=== PATIENT | female | born 1995 | race Caucasian/White ===

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

== ENCOUNTER 2017-06-04 15:03 | Emergency (ER) | payer MEDICAID, OTHER ==
[2017-06-04 15:08] VITALS: BP 129/86; PULSE 90; RESP 18; TEMP 97.2; O2SAT 100
--- NOTE | 2017-06-04 15:32 | ED PDOC ---
HPI: Female Pain Time Seen by Provider: 06/04/17 15:09 Chief Complaint (Nursing): Female Genitourinary History Per: Patient Onset/Duration Of Symptoms: Days (1) Current Symptoms Are (Timing): Still Present Severity: Mild Pain Scale Rating Of: 2 Quality Of Discomfort: Cramping Additional Complaint(s): Vaginal bleeding assoc with lower abd cramping since this AM. Approx 5 weeks . Abnormal Vaginal Bleeding: Yes : 1 Para: 0 Past Medical History Vital Signs: Last Vital Signs Temp 97.2 F L 06/04/17 15:05 Pulse 90 06/04/17 15:05 Resp 18 06/04/17 15:05 BP 129/86 06/04/17 15:05 Pulse Ox 100 06/04/17 15:05 - Medical History PMH: Asthma - Family History Family History: States: Unknown Family Hx - Home Medications Home Medications: Ambulatory Orders Medication Instructions Recorded Fluticasone Propionate [Flonase] 1 spr IN DAILY #1 bottle 05/16/15 Loratadine/Pseudoephedrine S 1 t12 PO BID #20 t12 05/16/15 [Claritin-D 12Hr 5 mg-120 mg] - Allergies Allergies/Adverse Reactions: Allergies Allergy/AdvReac Type Severity Reaction Status Date / Time seafood Allergy SWELLING Uncoded 06/04/17 15:05 Review of Systems Gastrointestinal: Positive for: Abdominal Pain Genitourinary Female: Positive for: Vaginal Bleeding Musculoskeletal: Negative for: Back Pain Physical Exam - Physical Exam Appears: Positive for: Non-toxic, No Acute Distress Skin: Positive for: Normal Color, Warm, DRY Gastrointestinal/Abdominal: Positive for: Bowel Sounds, Soft. Negative for: Tenderness Pelvic Exam: Positive for: External Exam Normal, No Masses, Blood (Blood in vault moderate.), Other (Cervix closed.). Negative for: Tender Adnexa, Tender Uterus Extremity: Positive for: Normal ROM Neurologic/Psych: Positive for: Alert, Oriented - Laboratory Results Result Diagrams: 06/04/17 15:44 06/04/17 15:44 - ECG O2 Sat by Pulse Oximetry: 100 Disposition - Clinical Impression Clinical Impression: Threatened miscarriage - Patient ED Disposition Is Patient to be Admitted: No Counseled Patient/Family Regarding: Studies Performed, Diagnosis, Need For Followup, Rx Given - Disposition [facility]] Disposition: Routine/Home Disposition Time: 16:39 Condition: FAIR Additional Instructions: Repeat Beta HCG 48 hrs Instructions: Threatened Miscarriage (ED) Forms: [employer] (Burundian)
[2017-06-04 15:58] LABS: ALBUMIN 4.8 g/dL (3.5-5.0); ALT/SGPT 34 U/L (9-52); AST/SGOT 26 U/L (14-36); BLOOD UREA NITROGEN 10 mg/dl (7-17); CALCIUM 9.7 mg/dL (8.4-10.2); GFR AFRICAN-AMERICAN > 60; GFR NON-AFRICAN AMERICAN > 60
[2017-06-04 15:59] LABS: BASO % 0.3 % (0.0-2.0); EOS # 0.1 K/uL (0.0-0.7); EOS % 0.7 % (0.0-4.0); HEMOGLOBIN 13.7 g/dL (12.0-16.0); LYMPH % 25.4 % (20.0-40.0); MEAN CELL VOLUME 84.9 fl (81.0-99.0); MEAN CORPUSCULAR HEMOGLOBIN 28.2 pg (27.0-31.0); MEAN CORPUSCULAR HGB CONC 33.3 g/dL (33.0-37.0); MEAN PLATELET VOLUME 8.4 fl (7.2-11.7); MONO # 0.5 K/uL (0.0-0.8); MONO % 4.1 % (0.0-10.0); NEUT # 8.1 K/uL (1.8-7.0); NEUT % 69.5 % (50.0-75.0); NRBC % 0.1 % (0.0-0.0); RBC 4.84 Mil/uL (3.80-5.20); RED CELL DISTRIBUTION WIDTH 12.7 % (11.5-14.5); WHITE BLOOD COUNT 11.7 K/uL (4.8-10.8)
[2017-06-04 16:21] LABS: ALB/GLOB RATIO 1.2 (1.0-2.1)
--- NOTE | 2017-06-04 16:38 | US ---
PROCEDURE: OB Pelvic Ultrasound HISTORY: r/o ectopic COMPARISON: None available. FINDINGS: UTERUS: No clear intrauterine gestation identified. 2-3 mm rounded anechoic space within endometrial echo complex is noted common nonspecific. Possible very early intrauterine gestation. Correlate with serial beta HCG and transvaginal ultrasound. Uterus measures 7.6 x 4.0 x 5.1 cm. No uterine mass. CERVIX: Long and closed. No cervical abnormality seen. RIGHT OVARY: Measures 3.0 x 1.4 x 2.1 cm. No mass. Normal flow. LEFT OVARY: Measures 2.7 x 1.4 x 2.2 cm. No mass. Normal flow. FREE FLUID: None. OTHER FINDINGS: None. IMPRESSION: No definite intrauterine gestation. Tiny anechoic space within endometrial echo complex could represent very early intrauterine gestation. Followup with serial beta HCG and transvaginal ultrasound. Cannot exclude ectopic on the basis of this examination, in the absence of clear demonstration of intrauterine gestation.
== END 2017-06-04 17:14 | disposition home or self-care (01) ==
LOC: H.ER 15:03
DX: O20.0 Threatened abortion (principal); Z3A.01 Less than 8 weeks gestation of pregnancy; J45.909 Unspecified asthma, uncomplicated; O99.511 Diseases of the respiratory system complicating pregnancy, first trimester

== ENCOUNTER 2017-06-06 13:14 | Emergency (ER) | payer MEDICAID ==
[2017-06-06 13:31] VITALS: BP 134/63; PULSE 88; RESP 16; TEMP 98.1; O2SAT 100
--- NOTE | 2017-06-06 13:41 | ED PDOC ---
HPI: Female Pain Time Seen by Provider: 06/06/17 13:21 Chief Complaint (Nursing): Female Genitourinary Chief Complaint (Provider): Vaginal bleeding History Per: Patient Additional Complaint(s): 21 yo female, no PMH, presents to ED with complaints of continued vaginal bleeding since 06/04. Pt currently 5 weeks . Pt seen and evlauated in the ED on 06/04 and US did not show IUP, Beta 351 at that time. Past Medical History Reviewed: Nursing Documentation, Vital Signs Vital Signs: Last Vital Signs Temp 98.1 F 06/06/17 13:28 Pulse 88 06/06/17 13:28 Resp 16 06/06/17 13:28 BP 134/63 06/06/17 13:28 Pulse Ox 100 06/06/17 13:28 - Medical History PMH: Asthma - Surgical History Surgical History: No Surg Hx - Family History Family History: States: Unknown Family Hx - Living Arrangements Living Arrangements: With Family - Social History Current smoker - smoking cessation education provided: No Alcohol: None Drugs: Denies - Home Medications Home Medications: Ambulatory Orders Medication Instructions Recorded Fluticasone Propionate [Flonase] 1 spr IN DAILY #1 bottle 05/16/15 Loratadine/Pseudoephedrine S 1 t12 PO BID #20 t12 05/16/15 [Claritin-D 12Hr 5 mg-120 mg] - Allergies Allergies/Adverse Reactions: Allergies Allergy/AdvReac Type Severity Reaction Status Date / Time seafood Allergy SWELLING Uncoded 06/04/17 15:05 Review of Systems ROS Statement: Except As Marked, All Systems Reviewed And Found Negative Genitourinary Female: Positive for: Vaginal Bleeding Physical Exam - Reviewed Nursing Documentation Reviewed: Yes Vital Signs Reviewed: Yes - Physical Exam Appears: Positive for: Well, Non-toxic, No Acute Distress Head Exam: Positive for: ATRAUMATIC, NORMAL INSPECTION, NORMOCEPHALIC Skin: Positive for: Normal Color, Warm, DRY Eye Exam: Positive for: EOMI, Normal appearance, PERRL ENT: Positive for: Normal ENT Inspection Neck: Positive for: Normal, Painless ROM Cardiovascular/Chest: Positive for: Regular Rate, Rhythm Respiratory: Positive for: CNT, Normal Breath Sounds Gastrointestinal/Abdominal: Positive for: Normal Exam, Bowel Sounds, Soft Back: Positive for: Normal Inspection Extremity: Positive for: Normal ROM Neurologic/Psych: Positive for: Alert, Oriented - ECG O2 Sat by Pulse Oximetry: 100 Medical Decision Making Medical Decision Making: Beta 50 today Pt educated on all results and demonstrated full understanding Advised follow up with PASTORAL ASSISTANT, return to ED with any concerns Disposition - Clinical Impression Clinical Impression: Miscarriage - Patient ED Disposition Is Patient to be Admitted: No - Disposition [facility]errals[facility]] Disposition: Routine/Home Disposition Time: 16:38 Condition: STABLE Additional Instructions: beta at todays visit: 50 Instructions: Spontaneous Miscarriage (ED) Forms: [employer] (Lao)
[2017-06-06 14:34] LABS: SQUAMOUS EPITHIAL 20 /hpf (0-5); URINE BACTERIA OCC (<OCC); URINE BILIRUBIN NEGATIVE (NEGATIVE); URINE BLOOD LARGE (NEGATIVE); URINE CLARITY CLOUDY (Clear); URINE COLOR YELLOW (YELLOW); URINE GLUCOSE (UA) NEG (Normal); URINE LEUKOCYTE ESTERASE MOD Leu/uL (Negative); URINE NITRATE NEGATIVE (NEGATIVE); URINE PROTEIN NEGATIVE (NEGATIVE); URINE UROBILINOGEN 0.2-1.0 mg/dL (0.2-1.0)
== END 2017-06-06 15:09 | disposition home or self-care (01) ==
LOC: H.ER 13:14
DX: O03.9 Complete or unspecified spontaneous abortion without complication (principal); J45.909 Unspecified asthma, uncomplicated; Z3A.01 Less than 8 weeks gestation of pregnancy

== ENCOUNTER 2018-03-02 03:53 | Emergency (ER) | payer MEDICAID ==
[2018-03-02 04:06] VITALS: TEMP 98
[2018-03-02] MEDS ORDERED: Sodium Chloride 0.9% 1,000 ML IV STA (05:10)
--- NOTE | 2018-03-02 05:14 | ED PDOC ---
HPI: Female Pain Time Seen by Provider: 03/02/18 04:51 Chief Complaint (Nursing): Female Genitourinary Chief Complaint (Provider): Female Genitourinary History Per: Patient History/Exam Limitations: no limitations Onset/Duration Of Symptoms: Hrs (4) Quality Of Discomfort: Cramping Associated Symptoms: Urinary Symptoms (Vaginal Bleeding). denies: Fever, Vomiting Additional Complaint(s): 22 years old 10 weeks female with Ab1 presents to ER for evaluation of vaginal bleed started 4 hours ago associated with lower abdominal pain. Patient denies any clots in blood, fever, vomiting or dysuria. She states she does not have an OB-ELECTRONIC IMAGER now and she did not get to follow up with one during her first . PMD: Sheba Back : 2 Para: 0 Miscarriage: 1 Past Medical History Reviewed: Historical Data, Nursing Documentation, Vital Signs Vital Signs: Last Vital Signs Temp 98 F 03/02/18 04:03 Pulse 66 03/02/18 04:03 Resp 14 03/02/18 04:03 BP 103/61 03/02/18 04:03 Pulse Ox 100 03/02/18 04:03 - Medical History PMH: Asthma - Surgical History Surgical History: No Surg Hx - Family History Family History: States: Unknown Family Hx - Social History Current smoker - smoking cessation education provided: No Alcohol: None Drugs: Denies - Home Medications Home Medications: Ambulatory Orders Medication Instructions Recorded Fluticasone Propionate [Flonase] 1 spr IN DAILY #1 bottle 05/16/15 Loratadine/Pseudoephedrine S 1 t12 PO BID #20 t12 05/16/15 [Claritin-D 12Hr 5 mg-120 mg] - Allergies Allergies/Adverse Reactions: Allergies Allergy/AdvReac Type Severity Reaction Status Date / Time seafood Allergy SWELLING Uncoded 06/04/17 15:05 Review of Systems ROS Statement: Except As Marked, All Systems Reviewed And Found Negative Constitutional: Negative for: Fever Gastrointestinal: Positive for: Abdominal Pain (Lower). Negative for: Vomiting Physical Exam - Reviewed Nursing Documentation Reviewed: Yes Vital Signs Reviewed: Yes - Physical Exam Appears: Positive for: Non-toxic, No Acute Distress Head Exam: Positive for: ATRAUMATIC, NORMOCEPHALIC Skin: Positive for: Normal Color, Warm, Dry Eye Exam: Positive for: Normal appearance Neck: Positive for: Normal, Painless ROM, Supple Cardiovascular/Chest: Positive for: Regular Rate, Rhythm. Negative for: Murmur Respiratory: Positive for: Normal Breath Sounds. Negative for: Respiratory Di stress Gastrointestinal/Abdominal: Positive for: Tenderness (suprapubic) Pelvic Exam: Positive for: External Exam Normal. Negative for: Active Bleeding, Blood Extremity: Positive for: Normal ROM. Negative for: Tenderness, Pedal Edema Neurologic/Psych: Positive for: Alert, Oriented (x3) - Laboratory Results Result Diagrams: 03/02/18 05:20 03/02/18 05:20 - ECG O2 Sat by Pulse Oximetry: 100 (RA) Pulse Ox Interpretation: Normal Medical Decision Making Medical Decision Making: Time: 0502 Initial Plan: --BBK --Beta-HCG --CMP --CBC --NaCl 1,000 ml IV 0616 Hemoglobin reviewed and shows no significant abnormality. Pelvic exam was done in the presence of the coach operator, Sultana Tejada. No blood noted at all and patient states bleeding stopped completely. Patient is Rh+ [address] Wilson's care pending US and HCG. Scribe Attestation: Documented by Socorro Barry, acting as a scribe for Didi Lopez MD. Provider Scribe Attestation: All medical record entries made by the Scribe were at my direction and personally dictated by me. I have reviewed the chart and agree that the record accurately reflects my personal performance of the history, physical exam, medical decision making, and the department course for this patient. I have also personally directed, reviewed, and agree with the discharge instructions and disposition. Disposition - Patient ED Disposition Is Patient to be Admitted: Transfer of Care - Disposition Disposition: Transfer of Care Disposition Time: 07:00 Forms: [employer] (Maltese)
[2018-03-02 05:46] LABS: BASO % 0.4 % (0.0-2.0); EOS # 0.1 K/uL (0.0-0.7); EOS % 0.9 % (0.0-4.0); HEMOGLOBIN 12.6 g/dL (12.0-16.0); LYMPH # 3.4 K/uL (1.0-4.3); LYMPH % 30.1 % (20.0-40.0); MEAN CELL VOLUME 84.3 fl (81.0-99.0); MEAN CORPUSCULAR HEMOGLOBIN 28.6 pg (27.0-31.0); MEAN CORPUSCULAR HGB CONC 33.9 g/dL (33.0-37.0); MEAN PLATELET VOLUME 8.1 fl (7.2-11.7); MONO # 0.7 K/uL (0.0-0.8); NEUT % 62.6 % (50.0-75.0); NRBC % 0.1 % (0.0-0.0); RBC 4.4 Mil/uL (3.80-5.20); RED CELL DISTRIBUTION WIDTH 13.2 % (11.5-14.5); WHITE BLOOD COUNT 11.2 K/uL (4.8-10.8)
[2018-03-02 05:56] LABS: ALB/GLOB RATIO 1.1 (1.0-2.1); ALT/SGPT 32 U/L (9-52); AST/SGOT 24 U/L (14-36); BLOOD UREA NITROGEN 9 mg/dl (7-17); CALCIUM 9.2 mg/dL (8.4-10.2); GFR NON-AFRICAN AMERICAN > 60
--- NOTE | 2018-03-02 07:35 | ED PDOC ---
- Laboratory Results Result Diagrams: 03/02/18 05:20 03/02/18 05:20 - ECG O2 Sat by Pulse Oximetry: 100 (RA) Pulse Ox Interpretation: Normal Medical Decision Making Medical Decision Makin --Care endorsed to this provider pending US, reevaluation and final disposition. Scribe Attestation: Documented by Catalina Copeland, acting as a scribe for Brionna Wilson MD Provider Scribe Attestation: All medical record entries made by the Scribe were at my direction and personally dictated by me. I have reviewed the chart and agree that the record accurately reflects my personal performance of the history, physical exam, medical decision making, and the department course for this patient. I have also personally directed, reviewed, and agree with the discharge instructions and disposition. US reviewed. Patient w/o complaints. IUP. Will discharge. 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 Disposition Doctor Will See Patient In The: Office Counseled Patient/Family Regarding: Diagnosis, Need For Followup - Clinical Impression Clinical Impression: Normal IUP (intrauterine ) on ultrasound - POA Present On Arrival: None - Disposition [facility]errals: [facility] [Outside] [facility] [Outside] Disposition: Routine/Home Disposition Time: 09:00 Instructions: Care Forms: [employer] (Yakut)
[2018-03-02 08:39] LABS: SQUAMOUS EPITHIAL 2 /hpf (0-5); URINE BILIRUBIN NEGATIVE (NEGATIVE); URINE BLOOD NEGATIVE (NEGATIVE); URINE CLARITY SLIGHTY-CLOUDY (Clear); URINE COLOR YELLOW (YELLOW); URINE GLUCOSE (UA) NEG (Normal); URINE LEUKOCYTE ESTERASE NEG Leu/uL (Negative); URINE PROTEIN NEGATIVE (NEGATIVE); URINE UROBILINOGEN 0.2-1.0 mg/dL (0.2-1.0)
[2018-03-02 09:50] VITALS: BP 120/72; PULSE 88; RESP 19; O2SAT 99
--- NOTE | 2018-03-02 10:25 | US ---
Date of service: 03/02/2018 PROCEDURE: OB Pelvic Ultrasound HISTORY: pelvic pain bleeding 5 wk LMP: 12/26/2017 COMPARISON: Pelvic ultrasound dated 06/04/2017. FINDINGS: UTERUS: Gestational sac: Single intrauterine gestation. Measures 2.5 cm compatible with estimated gestational age of 7 weeks, 1 day Yolk sac: Not visualized pole: [place]-rump length measures 2.2 cm compatible with estimated gestational age of 9 weeks, 0 days Heart rate: 178 bpm. age (Ultrasound estimated): 8 weeks, 1 day Sarina-gestational hemorrhage: None. Date of delivery (Ultrasound estimated) : 10/11/2018 Uterus measures 9.3 x 7.6 x 5.3 cm. Anteverted. Normal in size and appearance. CERVIX: Measures 3.6 cm. Long and closed. No cervical abnormality seen. RIGHT OVARY: Measures 3.9 x 3.0 x 1.9 cm. No mass lesion. Normal flow. LEFT OVARY: Measures 2.1 x 1.0 x 1.8 cm. No solid mass. Normal flow. FREE FLUID: None. OTHER FINDINGS: None. IMPRESSION: Single live intrauterine gestation with average ultrasound age of 8 weeks, 1 day. heart rate 178 beats per minute. Cervix long and closed. Close clinical follow-up.
== END 2018-03-02 09:48 | disposition home or self-care (01) ==
LOC: H.ER 03:53
DX: O26.892 Other specified pregnancy related conditions, second trimester (principal)
CPT/HCPCS: 76815; 76817; 80053; 81003; 84702; 85025; 86850; 86900; 87086; 96360; 99284; J7030

== ENCOUNTER 2018-05-03 03:57 | Emergency (ER) | payer MEDICAID ==
[2018-05-03] MEDS ORDERED: Sodium Chloride 0.9% 1,000 ML IV STA (04:32)
--- NOTE | 2018-05-03 04:45 | ED PDOC ---
HPI: Abdomen Time Seen by Provider: 05/03/18 04:33 Chief Complaint (Nursing): Abdominal Pain Chief Complaint (Provider): Abdominal Pain History Per: Patient History/Exam Limitations: no limitations Onset/Duration Of Symptoms: Hrs (x2) Current Symptoms Are (Timing): Still Present Additional Complaint(s): 22 year old female and 18 weeks presents to the ED for abdominal pain for the past two hours. Patient states that she was awoken by the severe abdominal pain which was associated with nausea and one episode of non- bloody non-bilious vomiting. Otherwise denies urinary symptoms and vaginal bleeding/ discharge. She additionally notes having a normal bowel movement without any relief. PMD: Sheba Back Past Medical History Reviewed: Historical Data, Nursing Documentation, Vital Signs Vital Signs: Last Vital Signs Temp 98 F 05/03/18 04:10 Pulse 69 05/03/18 04:10 Resp 20 05/03/18 04:10 BP 112/70 05/03/18 04:10 Pulse Ox 100 05/03/18 04:10 - Medical History PMH: Asthma - Surgical History Surgical History: No Surg Hx - Family History Family History: States: Unknown Family Hx - Social History Current smoker - smoking cessation education provided: No Alcohol: None Drugs: Denies - Home Medications Home Medications: Ambulatory Orders Medication Instructions Recorded Fluticasone Propionate [Flonase] 1 spr IN DAILY #1 bottle 05/16/15 Loratadine/Pseudoephedrine S 1 t12 PO BID #20 t12 05/16/15 [Claritin-D 12Hr 5 mg-120 mg] - Allergies Allergies/Adverse Reactions: Allergies Allergy/AdvReac Type Severity Reaction Status Date / Time seafood Allergy SWELLING Uncoded 06/04/17 15:05 Review of Systems ROS Statement: Except As Marked, All Systems Reviewed And Found Negative Gastrointestinal: Positive for: Nausea, Vomiting (x1 episode non-bloody non- bilious), Abdominal Pain Genitourinary Female: Negative for: Dysuria, Frequency, Vaginal Discharge, Vaginal Bleeding Physical Exam - Reviewed Nursing Documentation Reviewed: Yes Vital Signs Reviewed: Yes - Physical Exam Appears: Positive for: Uncomfortable Head Exam: Positive for: ATRAUMATIC, NORMOCEPHALIC Skin: Positive for: Normal Color, Warm, Dry Eye Exam: Positive for: Normal appearance, EOMI, PERRL ENT: Positive for: Normal ENT Inspection Neck: Positive for: Normal, Painless ROM, Supple Cardiovascular/Chest: Positive for: Regular Rate, Rhythm Respiratory: Positive for: Normal Breath Sounds. Negative for: Respiratory Distress Gastrointestinal/Abdominal: Positive for: Tenderness (lower abdominal tenderness) Back: Positive for: Normal Inspection Extremity: Positive for: Normal ROM Neurologic/Psych: Positive for: Alert, Oriented (x3) - Laboratory Results Result Diagrams: 05/03/18 04:35 05/03/18 04:25 - ECG O2 Sat by Pulse Oximetry: 100 (RA) Pulse Ox Interpretation: Normal Medical Decision Making Medical Decision Making: Time: 430 Initial Impression: 22 year old female with abdominal pain in Initial Plan: --Beta-HCG, quant --CMP --CBC with differential --Normal saline IV --Reglan 10mg IVPB --Urinalysis --US OB , limited 07 Patient care endorsed from this provider to Dr. Wong pending US and reevaluation. Scribe Attestation: Documented by Vivian iDaz, acting as a scribe for Francesco Cintron MD. Provider Scribe Attestation: All medical record entries made by the Scribe were at my direction and personally dictated by me. I have reviewed the chart and agree that the record accurately reflects my personal performance of the history, physical exam, medical decision making, and the department course for this patient. I have also personally directed, reviewed, and agree with the discharge instructions and disposition. Disposition - Clinical Impression Clinical Impression: Abdominal discomfort, Abdominal pain during - Patient ED Disposition Is Patient to be Admitted: Transfer of Care - Disposition Disposition: Transfer of Care Disposition Time: 07:00 Condition: FAIR Additional Instructions: Take Tylenol as needed for pain. Follow up with pre billing specialist as previously scheduled. Return to the emergency department if symptoms worsen or if new symptoms develop. Instructions: Acute Abdomen (Belly Pain), Adult (DC), Viral Gastroenteritis, Adult (DC) Forms: [employer] (Tuvaluan), [facility] ED School/Work Excuse Print Language: TANZANIAN Patient Signed Over To: Trena Wong
[2018-05-03 05:19] LABS: BASO % 0.4 % (0.0-2.0); EOS # 0.2 K/uL (0.0-0.7); EOS % 1.6 % (0.0-4.0); HEMOGLOBIN 12.1 g/dL (12.0-16.0); LYMPH # 3.4 K/uL (1.0-4.3); LYMPH % 28.6 % (20.0-40.0); MEAN CELL VOLUME 85.2 fl (81.0-99.0); MEAN CORPUSCULAR HEMOGLOBIN 28.9 pg (27.0-31.0); MEAN CORPUSCULAR HGB CONC 33.9 g/dL (33.0-37.0); MEAN PLATELET VOLUME 8.2 fl (7.2-11.7); MONO # 0.6 K/uL (0.0-0.8); MONO % 5.3 % (0.0-10.0); NEUT # 7.6 K/uL (1.8-7.0); NEUT % 64.1 % (50.0-75.0); RBC 4.19 Mil/uL (3.80-5.20); RED CELL DISTRIBUTION WIDTH 13.2 % (11.5-14.5); WHITE BLOOD COUNT 11.8 K/uL (4.8-10.8)
[2018-05-03 05:53] LABS: ALBUMIN 3.8 g/dL (3.5-5.0); ALT/SGPT 28 U/L (9-52); AST/SGOT 24 U/L (14-36); BLOOD UREA NITROGEN 11 mg/dl (7-17); CALCIUM 9.6 mg/dL (8.4-10.2); GFR NON-AFRICAN AMERICAN > 60
[2018-05-03 07:40] LABS: SQUAMOUS EPITHIAL 2 /hpf (0-5); URINE AMORPHOUS SEDIMENT OCC /ul (<OCC); URINE BACTERIA RARE (<OCC); URINE BILIRUBIN NEGATIVE (NEGATIVE); URINE BLOOD NEGATIVE (NEGATIVE); URINE CLARITY CLOUDY (Clear); URINE COLOR YELLOW (YELLOW); URINE GLUCOSE (UA) NEG (Normal); URINE LEUKOCYTE ESTERASE NEG Leu/uL (Negative); URINE PROTEIN NEGATIVE (NEGATIVE); URINE UROBILINOGEN 0.2-1.0 mg/dL (0.2-1.0)
--- NOTE | 2018-05-03 07:41 | ED PDOC ---
- Laboratory Results Result Diagrams: 05/03/18 04:35 05/03/18 04:25 - ECG O2 Sat by Pulse Oximetry: 99 (RA) Pulse Ox Interpretation: Normal Medical Decision Making Medical Decision Makin:00 Care endorsed to this provider by Dr. Cintron 22 year old female woke up with severe abdominal pain. Workup thus far shows no abnormalities. Pending US. 10:33 OB US FINDINGS: There is a single live intrauterine gestation identified. The fetus is in cephalic presentation. The heart rate is 150 beats per minute. A normal quantity of amniotic fluid is visualized. A normal anterior placenta is identified. There is no evidence of placenta previa. The cervix is closed and measures 4.8 cm in length. There is no fluid seen within the cervix. biometry yields a gestational age of 18 weeks 1 day. The XIANG by ultrasound is 10/03/2018. No gross anatomic abnormality is identified. Evaluation of anatomy is grossly limited on the basis of this examination. IMPRESSION: Single live intrauterine gestation of approximately 18 weeks 1 day. anatomy not adequately assessed at this time. Follow-up at 20 weeks for anatomic evaluation is advised. Anterior placenta. No previa. Normal amniotic fluid volume. Cervix long and closed. heart rate 150 beats per minute. 11:00 Pt with improved symptoms but states that the pain comes and goes. NO pain with urination. NO nausea or vomiting. Pt states the cramping feels like the early pain that her school bus operator told her was normal. Pt advised to take TYlenol as needed for pain. Pt states she is not having any morning sickness and states that she is taking pre- vitamins and does not need a prescription. Pt will follow up with school bus operator as previously scheduled. Scribe Attestation: Documented by Catalina Copeland acting as a scribe for Trena Wong MD Provider Scribe Attestation: All medical record entries made by the Scribe were at my direction and personally dictated by me. I have reviewed the chart and agree that the record accurately reflects my personal performance of the history, physical exam, medical decision making, and the department course for this patient. I have also personally directed, reviewed, and agree with the discharge instructions and disposition. Disposition - Clinical Impression Clinical Impression: Abdominal discomfort, Abdominal pain during - POA Present On Arrival: None - Disposition Disposition: Routine/Home Disposition Time: 11:14 Condition: IMPROVED Forms: [employer] (Faroese)
--- NOTE | 2018-05-03 10:36 | US ---
Date of service: 05/03/2018 PROCEDURE: Obstetrical ultrasound examination HISTORY: abd pain preg COMPARISON: 03/02/2018 TECHNIQUE: Transabdominal FINDINGS: There is a single live intrauterine gestation identified. The fetus is in cephalic presentation. The heart rate is 150 beats per minute. A normal quantity of amniotic fluid is visualized. A normal anterior placenta is identified. There is no evidence of placenta previa. The cervix is closed and measures 4.8 cm in length. There is no fluid seen within the cervix. biometry yields a gestational age of 18 weeks 1 day. The XIANG by ultrasound is 10/03/2018. No gross anatomic abnormality is identified. Evaluation of anatomy is grossly limited on the basis of this examination. IMPRESSION: Single live intrauterine gestation of approximately 18 weeks 1 day. anatomy not adequately assessed at this time. Follow-up at 20 weeks for anatomic evaluation is advised. Anterior placenta. No previa. Normal amniotic fluid volume. Cervix long and closed. heart rate 150 beats per minute.
[2018-05-03 11:24] VITALS: BP 107/59; PULSE 75; RESP 18; TEMP 98.2
[2018-05-05 21:38] VITALS: O2SAT 100
== END 2018-05-03 11:25 | disposition home or self-care (01) ==
LOC: H.ER 03:57
DX: O26.892 Other specified pregnancy related conditions, second trimester (principal); Z3A.18 18 weeks gestation of pregnancy
CPT/HCPCS: 76815; 80053; 81003; 84702; 85025; 96365; 99284; J2765; J7030

== ENCOUNTER 2018-08-13 18:06 | Emergency (ER) | payer MEDICAID ==
--- NOTE | 2018-08-13 19:52 | OBDCSUM ---
Datetime: 08/13/2018 19:23 Discharged to, Provider: Home Follow up at, Provider: [facility] Disch Instr Activity: Normal activity Disch Instr Diet: Regular Discharge Diet restrict Prov: DRINK PLENTY OF WATER Discharge Time: 08/13/2018 19:24 Follow up in weeks, Provider: 08/14/2018 Disch Referrals: None Disch Activity Restrictions: No lifting Discharge Diagnosis Prov Other: decreased movement, reactive NST
--- NOTE | 2018-08-13 19:52 | OBHP ---
Datetime: 08/13/2018 18:45 IP Adm Impression: , intrauterine IP Admit Plan: Observation/Evaluation Admit Comment, IP Provider: Pt is a 22 y/o F at EGA of 32.6 week XIANG 10/02/18 LMP 12/26/17. Melvin crow presents to BLAZE due to decreased movements since yesterday AM. Sharp lower abdominal matheus n R>L since this AM worse with sitting 6/10 in severity. Denies vaginal bleeding, or contractions. Re ports constipation. Denies headaches, blurry vision, SOB, chest pain, dizziness, N/V, diarrhea, or dy suria. Provider: [place] -Dr. Wong last saw PMHx: None Meds: PNV FMHx: None Allergies: NKDA SurgHx: None SOCHx: Denies EthOH, tobacco, or drug use OBGYN: Hx of Chlamydia + 3 months ago treated with azithromycin reports had a ARSALAN no documentation reporting this. No complications, Last pap 2017 reports normal Labs: ABO: A+, AB neg, HIV neg, HepB-neg, GC-neg, Rubella-Immune, PPD 05/10/18, hx of chlamydia + Assessment Pt is a 22 y/o F at EGA of 32.6 week XIANG 10/02/18 LMP 12/26/17. Patient presents to BLAZE due to decreased movements since yesterday AM. Plan: -Observe BLAZE -Monitor VS -Monitor FHR tracing Case reviewed and discussed with attending Janey Genao PGY1 Addendum by Dr. Munoz: I have evaluated the patient independently and I agree with the above. Reac tive NST - FHR = 120 mod nj, +accels, no decels. TOCO - no contractions. Discussed with patient NST is reactive and she is stable for discharge. Discussed kick counts, decreased movement precauti ons and labor precautions. F/U in clinic Extremities - PN: Normal Abdomen - PN: Normal Lungs - PN: Normal Heart - PN: Normal HEENT - PN: Normal General - PN: Normal Presentation-Admit: Breech Comments, ACOG Physical Exam: GEN: Lying in bed NAD HEENT: NCAT CARD: RRR + S1S2 RESP: CTA, no wheezing, rales or rhonchi GI: Gravid, + BS, no tenderness to palpation EXT: No edema, no calf tenderness IP Hx Assessment: The History has been Reviewed and is Current EGA AdmitDate IP: 32.6 IP Chief Complaint: Decreased movement Genitourinary Exam: Normal
[2018-08-13 23:38] VITALS: BP 94/57; PULSE 96; RESP 18; TEMP 98; O2SAT 99
== END 2018-08-13 19:30 | disposition home or self-care (01) ==
LOC: H.EROB2 18:06
DX: O36.8131 Decreased fetal movements, third trimester, fetus 1 (principal); O26.93 Pregnancy related conditions, unspecified, third trimester; K59.00 Constipation, unspecified; Z3A.32 32 weeks gestation of pregnancy